=== PATIENT | female | born 1955 | race Caucasian/White ===

== ENCOUNTER 2017-01-03 14:15 | Emergency (ER) | payer MEDICARE, MEDICAID ==
[2017-01-03] MEDS ORDERED: IBUPROFEN 800 MG TABLET PO ONE (15:14)
--- NOTE | 2017-01-03 15:15 | ER Document Report ---
ED Extremity Problem, Lower - General Chief Complaint: Knee Pain Stated Complaint: KNEE PAIN Time Seen by Provider: 01/03/17 14:34 Mode of Arrival: Ambulatory Information source: Patient Notes: 61-year-old female presents to ED for right knee pain. States she woke up about 2 weeks ago with pain in this knee. She denies any injury. She states she went to her primary care doctor Dr. Milan on and she told him about the knee and she times did not know what happened and he just went on to the next complaint, as this was her regular physical. Patient is on chronic pain management with Vicodin 7.5/325 for her chronic pain. TRAVEL OUTSIDE OF THE [place] IN LAST 30 DAYS: No - HPI Patient complains to provider of: Pain, Swelling. No: Injury Location: Knee - Right Occurred: Other - 2 weeks Onset/Duration: Persistent, Worse Quality of pain: Achy, Sharp, Throbbing Severity: Severe Pain Level: 5 Recent injury: No Exacerbated by: Hanging down, Movement, Walking Relieved by: Nothing - Related Data Allergies/Adverse Reactions: No Known Allergies Allergy (Verified 01/03/17 14:19) Past Medical History - General Information source: Patient - Social History Smoking Status: Current Every Day Smoker Cigarette use (# per day): Yes - 1 little cigar daily Chew tobacco use (# tins/day): No Smoking Education Provided: Yes - Less than 1 minute Frequency of alcohol use: None Drug Abuse: None Lives with: Family Family History: Arthritis, DM, Hypertension, Malignancy Patient has suicidal ideation: No Patient has homicidal ideation: No - Past Medical History Cardiac Medical History: Reports: Hx Hypercholesterolemia Pulmonary Medical History: Reports: Hx COPD - inhalers EENT Medical History: Reports: None Neurological Medical History: Reports: Hx Cerebrovascular Accident - TIA Endocrine Medical History: Reports: None Renal/ Medical History: Reports: None Malignancy Medical History: Reports: Hx Skin Cancer GI Medical History: Reports: Hx Gastroesophageal Reflux Disease Musculoskeltal Medical History: Reports Hx Arthritis, Reports Hx Musculoskeletal Deformity, Reports Hx Musculoskeletal Trauma Skin Medical History: Reports None Psychiatric Medical History: Reports: Hx Attention Deficit Hyperactivity Disorder, Hx Bipolar Disorder, Hx Depression Traumatic Medical History: Reports: Hx Fractures - Right knee fracture torn knee meniscus fractured arm and hands Infectious Medical History: Reports: None Past Surgical History: Reports: Hx Hysterectomy, Hx Oral Surgery - [place] teeth , Other - Skin cancers - Immunizations Immunizations up to date: Yes Hx Diphtheria, Pertussis, Tetanus Vaccination: Yes - 09-16-11 Hx Pneumococcal Vaccination: 05/02/09 Review of Systems - Review of Systems Constitutional: No symptoms reported EENT: No symptoms reported Cardiovascular: No symptoms reported Respiratory: No symptoms reported Gastrointestinal: No symptoms reported Genitourinary: No symptoms reported Female Genitourinary: No symptoms reported Musculoskeletal: Joint pain - Right knee pain, Joint swelling - Right knee swelling Skin: No symptoms reported Hematologic/Lymphatic: No symptoms reported Neurological/Psychological: No symptoms reported -: Yes All other systems reviewed and negative Physical Exam - Vital signs Vitals: Temp Pulse Resp BP Pulse Ox 97.9 F 85 20 132/81 H 95 01/03/17 14:19 01/03/17 14:19 01/03/17 14:19 01/03/17 14:19 01/03/17 14:19 Interpretation: Normal - General General appearance: Appears well, Alert - HEENT Head: Normocephalic, Atraumatic Eyes: Normal Pupils: PERRL - Respiratory Respiratory status: No respiratory distress Chest status: Nontender Breath sounds: Normal Chest palpation: Normal - Cardiovascular Rhythm: Regular Heart sounds: Normal auscultation Murmur: No - Abdominal Inspection: Normal Distension: No distension Bowel sounds: Normal Tenderness: Nontender Organomegaly: No organomegaly - Back Back: Normal, Nontender - Extremities General upper extremity: Normal inspection, Nontender, Normal color, Normal ROM , Normal temperature General lower extremity: Normal color, Normal temperature, Normal weight bearing. No: Jermain's sign Knee: Tender, Pain with ROM, Patellar tendon intact, Tender joint line. No: Abrasion, Deformity, Dislocation, Drawer's test instability, Ecchymosis, Instability, Joint effusion, Laceration, Laxity with valgus stress, Laxity with varus stress, Popliteal fossa tender - Neurological Neuro grossly intact: Yes Cognition: Normal Orientation: AAOx4 Adam Coma Scale Eye Opening: Spontaneous Aadm Coma Scale Verbal: Oriented [place] Coma Scale Motor: Obeys Commands Adam Coma Scale Total: 15 Speech: Normal Motor strength normal: LUE, RUE, LLE, RLE Sensory: Normal - Psychological Associated symptoms: Normal affect, Normal mood - Skin Skin Temperature: Warm Skin Moisture: Dry Skin Color: Normal Course - Re-evaluation Re-evalutation: 01/03/17 17:46 Discussed knee x-ray with patient and written report given to patient to follow- up with her primary doctor. Patient also given the name and number for Dr. Hayes. Patient was treated with ibuprofen and instructed to follow-up with the orthopedic doctor. Patient instructed on use of her questions and a knee immobilizer was applied to her knee. Patient was discharged home. - Vital Signs Vital signs: Temp Pulse Resp BP Pulse Ox 98.6 F 78 16 113/79 98 01/03/17 16:33 01/03/17 16:33 01/03/17 16:33 01/03/17 16:33 01/03/17 16:33 - Diagnostic Test Radiology reviewed: Image reviewed, Reports reviewed Procedures - Immobilization Right Knee Immobilizer type: Crutches, Knee immobilizer Performed by: PCT Post-Proc Neuro Vasc Exam: Normal Alignment checked and good: Yes Discharge - Discharge Clinical Impression: Right knee pain Qualifiers: Chronicity: chronic Qualified Code(s): M25.561 - Pain in right knee Condition: Stable Disposition: HOME, SELF-CARE Additional Instructions: You were seen today for knee pain in the right knee that you have had for 2 weeks. You state you have talked to your primary doctor about this pain with no change in your therapy. You deny any new injury to your right knee. You do have a history of pain and problems in this knee. Your x-ray shows mild arthritis to the knee joint no acute problems noted. Continue taking your medication as it is prescribed by Dr. Milan. Elevation & Warmth The area should be elevated as much as possible over the next 48 hours. Try to keep it above the level of your heart. Apply gentle heat (such as a heating pad or hot water bottle) for about 20 to 30 minutes about every two hours -- at least four times daily. Warmth and elevation will help you make a more rapid recovery, and will ease the pain considerably. Anti-Inflammatory Medication You have received a prescription for an antiinflammatory agent. This is an excellent, safe drug for pain control. In addition, it has potent antiinflammatory effects which are beneficial, especially in the treatment of injuries, arthritis, or tendonitis. It's best to take this medicine with food. Persons with ulcer disease or allergy to aspirin should notify their physician of this before taking this drug. Take the medication exactly as prescribed. Don't take additional doses unless instructed to do so by your doctor. If you develop wheezing, shortness of breath, hives, faintness, stomach pain, vomiting, or dark black stools, return for re-evaluation at once. KNEE IMMOBILIZING SPLINT: The knee immobilizing splint will protect the injury while healing begins. This type of splint does not allow the knee to bend at all. No running or sports will be possible. If the splint allows painfree walking, it's giving adequate protection. If there is still significant pain, crutches may be needed as well. Don't do anything that hurts. Adjusted the splint, if necessary. The stiffeners on the sides are attached with Velcro, so they can be easily moved to adjust for thigh and calf size. If you need help with these adjustments, come back. You will lose muscle strength in the thigh while using this splint. The doctor will advise you if it's safe to do isometric knee exercises while you use it. USE OF CRUTCHES: The doctor has recommended that you not bear weight at this time. You will need to use crutches. Adjust the crutches so the tops come to about two inches under the armpit while you are standing upright. Use your hands -- not your armpits -- to support your weight. To get into a chair, support yourself with one crutch on the injured side. Hold the chair with the other hand, then lower yourself while putting all your weight on the good leg. Going up stairs is `good leg up, step up, then bring up crutches and bad leg.' Down stairs is `bad leg and crutches down, then bring good leg down.' If you develop numbness or swelling in an arm or hand, you are using the crutches incorrectly. Return if you are having any problems with the crutches. FOLLOW-UP CARE: If you have been referred to a physician for follow-up care, call the physician s office for an appointment as you were instructed or within the next two days. If you experience worsening or a significant change in your symptoms, notify the physician immediately or return to the Emergency Department at any time for re-evaluation. Prescriptions: Ibuprofen 600 mg PO Q8HP PRN #20 tablet PRN Reason: Forms: Elevated Blood Pressure, Smoking Cessation Education Referrals: JESSICA MILAN MD [Primary Care Provider] - Follow up as needed MURALI HAYES MD [ACTIVE STAFF] - Follow up as needed
--- NOTE | 2017-01-03 15:53 | RADIOLOGY REPORT (SQ) ---
EXAM DESCRIPTION: KNEE RIGHT 4 VIEWS COMPLETED DATE/TIME: 01/03/2017 3:35 pm REASON FOR STUDY: pain right knee COMPARISON: None. NUMBER OF VIEWS: Four views. TECHNIQUE: AP, lateral, and both oblique radiographic images acquired of the right knee. LIMITATIONS: None. FINDINGS: MINERALIZATION: Normal. BONES: No acute fracture or dislocation. No worrisome bone lesions. JOINT: Mild osteoarthritis medial tibiofemoral compartment. No significant joint effusion. SOFT TISSUES: No soft tissue swelling. No radio-opaque foreign body. OTHER: No other significant finding. IMPRESSION: NEGA MILD OSTEOARTHRITIS. NO RADIOGRAPHIC EVIDENCE OF ACUTE INJURY. TECHNICAL DOCUMENTATION: JOB ID: [id number] [employer]- All Rights Reserved
[2017-01-03] MEDS ORDERED: DEXAMETHASONE SOD PHOS INJ 10 MG/1 ML VIAL IM ONE (16:22)
[2017-01-03 16:42] VITALS: BP 113/79
== END 2017-01-03 16:42 | disposition home or self-care (01) ==
LOC: ER 14:15
DX: G89.29 Other chronic pain (principal); M25.561 Pain in right knee; M25.461 Effusion, right knee; Z79.891 Long term (current) use of opiate analgesic; J44.9 Chronic obstructive pulmonary disease, unspecified; F17.290 Nicotine dependence, other tobacco product, uncomplicated; Z71.6 Tobacco abuse counseling; Z85.828 Personal history of other malignant neoplasm of skin; Z87.81 Personal history of (healed) traumatic fracture
CPT/HCPCS: 99283; 96372; 73564; L1830; A9270; J1100

== ENCOUNTER → 2018-09-11 | Outpatient (CLI) | payer MEDICARE, MEDICAID | LOC: LAB 16:47 | PROVIDERS: ATTEND Hospitalist | DX: Z22.322 Carrier or suspected carrier of Methicillin resistant Staphylococcus aureus (principal) | CPT/HCPCS: 87070 ==

== ENCOUNTER → 2018-11-13 | Outpatient (CLI) | payer MEDICARE, MEDICAID ==
--- NOTE | 2018-11-13 15:52 | WOMENS IMAGING REPORT ---
EXAM DESCRIPTION: BILAT SCREENING MAMMO W/CAD COMPLETED DATE/TIME: 11/13/2018 1:38 pm REASON FOR STUDY: Z12.31 ROUTINE BILATERAL SCREENING Z12.31 ENCNTR SCREEN MAMMOGRAM FOR MALIGNANT N EOPLASM OF LORRI COMPARISON: 2014 EXAM PARAMETERS: Standard craniocaudal and mediolateral oblique views of each breast recorded using digital acquisition. Read with the assistance of CAD. .FORMERLY [facility], [facility] - [facility] Version 9.2 LIMITATIONS: None. FINDINGS: No suspicious masses, suspicious calcifications or architectural distortion. No areas of c oncern. IMPRESSION: Negative MAMMOGRAM. BIRADS 1 BREAST DENSITY: b. There are scattered areas of fibroglandular density. BIRAD: ASSESSMENT: 1 NEGATIVE RECOMMENDATION: ROUTINE SCREENING COMMENT: The patient has been notified of the results by letter per MQSA requirements. Additional no tification policies are in place for contacting patient with suspicious or incomplete findings. Quality ID #[id number]: The [employer] recommends an annual screening mammogram for women aged 40 years or over. This facility utilizes a reminder system to ensure that all patients receive reminder letters, and/or direct phone calls for appointments. This includes reminders for routine scr eening mammograms, diagnostic mammograms, or other Breast Imaging Interventions when appropriate. Th is patient will be placed in the appropriate reminder system. TECHNICAL DOCUMENTATION: FINDING NUMBER: (1) ASSESSMENT: (1) JOB ID: [id number] [employer]- All Rights Reserved Reading location - IP/workstation name: [email or web address]
== END ==
LOC: WI 13:14
PROVIDERS: ATTEND Internal Medicine
DX: Z12.31 Encounter for screening mammogram for malignant neoplasm of breast (principal)
CPT/HCPCS: 77067